=== PATIENT | female | born 1950 | race American Indian/Alaskan Native ===

== ENCOUNTER 2017-07-18 12:25 | Emergency (ER) | payer MEDICARE ==
[2017-07-18 13:25] VITALS: BP 174/89
--- NOTE | 2017-07-18 14:44 | Emergency Department Report ---
ED Abdominal Pain HPI - General Chief Complaint: Tube Replacement Stated Complaint: ABDOMINAL PAIN Time Seen by Provider: 07/18/17 14:34 Source: EMS Mode of arrival: Stretcher Limitations: Altered Mental Status, Physical Limitation - History of Present Illness Initial Comments: Patient is 67 years old female, snf patient with history of stroke bedridden, probable by EMS for evaluation of G-tube placement. Radiology reported that patient does not have G-tube in place. Patient also complaining of lower abdominal pain mainly suprapubic. Patient denied any fever , nausea or vomiting. No chest pain or shortness of breath. MD Complaint: abdominal pain -: Gradual Location: suprapubic Migration to: no migration Severity: moderate Quality: fullness - Related Data Home Medications Medication Instructions Recorded Confirmed Last Taken Escitalopram [Lexapro] 20 mg FEEDTUBE DAILY 05/10/14 01/09/17 Unknown HYDROcodone/APAP 5-325 [Model 1 each FEEDTUBE Q8HR PRN 05/10/14 01/09/17 Unknown 5-325 mg TAB] Levothyroxine [Synthroid] 225 mcg FEEDTUBE QAM 05/10/14 01/09/17 Unknown Metoprolol [Lopressor TAB] 50 mg FEEDTUBE BID 05/10/14 01/09/17 Unknown Pravastatin Sodium [Pravastatin] 40 mg FEEDTUBE QHS 05/10/14 01/09/17 Unknown Warfarin [Coumadin] 5 mg FEEDTUBE QDAY 05/10/14 01/09/17 Unknown LORazepam [Ativan] 1 mg PO Q6H PRN 03/21/15 01/09/17 Unknown Previous Rx's Medication Instructions Recorded Last Taken Type levETIRAcetam [Keppra ORAL LIQ] 500 mg PO BID #1 bottle 03/31/15 Unknown Rx Levothyroxine [Synthroid] 225 mcg FEEDTUBE DAILY@0600 #30 01/10/17 Unknown Rx tablet Lipase/Protease/Amylase [Pancreaze 1 each FEEDTUBE PRN PRN #30 capsule 01/10/[address] 10,500 Unit] Magnesium Hydroxide [Milk of 30 ml PO Q4H PRN #30 oral.liqd 01/10/17 Unknown Rx Magnesia] Simvastatin [Zocor TAB] 20 mg PO QHS tablet 01/10/17 Unknown Rx Sodium Bicarbonate 325 mg FEEDTUBE PRN PRN #30 tablet 01/10/17 Unknown Rx Warfarin [Coumadin] 7.5 mg PO DAILY@1700 #30 tablet 01/10/17 Unknown Rx Docusate Sodium [Colace] 100 mg PO BID PRN #30 capsule 07/18/17 Unknown Rx Lactulose 10 gm PO DAILY PRN #150 ml 07/18/17 Unknown Rx Levofloxacin [Levofloxacin ORAL 500 mg FEEDTUBE DAILY #140 ml 07/18/17 Unknown Rx SOLN] Allergies Allergy/AdvReac Type Severity Reaction Status Date / Time No Known Allergies Allergy Verified 03/31/15 08:09 ED Review of Systems ROS: Stated complaint: ABDOMINAL PAIN Other details as noted in HPI Comment: All other systems reviewed and negative Constitutional: denies: chills, fever Respiratory: denies: cough, orthopnea, shortness of breath Cardiovascular: denies: chest pain, palpitations, dyspnea on exertion, orthopnea Gastrointestinal: abdominal pain. denies: nausea, vomiting, diarrhea, constipation, hematemesis, hematochezia Neurological: denies: headache, weakness, numbness, paresthesias ED Past Medical Hx - Past Medical History Previous Medical History?: Yes Hx Hypertension: Yes Hx CVA: Yes (right sided deficit) Hx Heart Attack/AMI: Yes (2013) Hx Congestive Heart Failure: Yes Hx Diabetes: Yes Hx Renal Disease: Yes Hx HIV: No Additional medical history: g-tube,depression,CAD, hypothyroidism, hyponatremia , high cholesterol, - Surgical History Past Surgical History?: Yes Hx Coronary Stent: Yes Additional Surgical History: cardiac surgery. g tube. - Social History Smoking Status: Unknown if ever smoked Substance Use Type: None - Medications Home Medications: Home Medications Medication Instructions Recorded Confirmed Last Taken Type Escitalopram [Lexapro] 20 mg FEEDTUBE DAILY 05/10/14 01/09/17 Unknown History HYDROcodone/APAP 5-325 [Model 1 each FEEDTUBE Q8HR PRN 05/10/14 01/09/17 Unknown History 5-325 mg TAB] Levothyroxine [Synthroid] 225 mcg FEEDTUBE QAM 05/10/14 01/09/17 Unknown History Metoprolol [Lopressor TAB] 50 mg FEEDTUBE BID 05/10/14 01/09/17 Unknown History Pravastatin Sodium [Pravastatin] 40 mg FEEDTUBE QHS 05/10/14 01/09/17 Unknown History Warfarin [Coumadin] 5 mg FEEDTUBE QDAY 05/10/14 01/09/17 Unknown History LORazepam [Ativan] 1 mg PO Q6H PRN 03/21/15 01/09/17 Unknown History levETIRAcetam [Keppra ORAL LIQ] 500 mg PO BID #1 bottle 03/31/15 01/09/17 Unknown Rx Levothyroxine [Synthroid] 225 mcg FEEDTUBE DAILY@0600 #30 01/10/17 Unknown Rx tablet Lipase/Protease/Amylase [Pancreaze 1 each FEEDTUBE PRN PRN #30 capsule 01/10/17 Unknown Rx 10,500 Unit] Magnesium Hydroxide [Milk of 30 ml PO Q4H PRN #30 oral.liqd 01/10/17 Unknown Rx Magnesia] Simvastatin [Zocor TAB] 20 mg PO QHS tablet 01/10/17 Unknown Rx Sodium Bicarbonate 325 mg FEEDTUBE PRN PRN #30 tablet 01/10/17 Unknown Rx Warfarin [Coumadin] 7.5 mg PO DAILY@1700 #30 tablet 01/10/17 Unknown Rx Docusate Sodium [Colace] 100 mg PO BID PRN #30 capsule 07/18/17 Unknown Rx Lactulose 10 gm PO DAILY PRN #150 ml 07/18/17 Unknown Rx Levofloxacin [Levofloxacin ORAL 500 mg FEEDTUBE DAILY #140 ml 07/18/17 Unknown Rx SOLN] ED Physical Exam - General Limitations: No Limitations, Altered Mental Status, Physical Limitation General appearance: alert, in no apparent distress - Head Head exam: Present: atraumatic, normocephalic - Eye Eye exam: Present: normal appearance, PERRL - ENT ENT exam: Present: normal exam, normal orophraynx, mucous membranes moist - Neck Neck exam: Present: normal inspection, full ROM. Absent: tenderness, meningismus, lymphadenopathy - Respiratory Respiratory exam: Present: normal lung sounds bilaterally. Absent: respiratory distress, wheezes, rales, rhonchi, chest wall tenderness, accessory muscle use, decreased breath sounds, prolonged expiratory - Cardiovascular Cardiovascular Exam: Present: regular rate, normal rhythm, normal heart sounds - GI/Abdominal GI/Abdominal exam: Present: soft, tenderness (suprapubic tenderness), normal bowel sounds, other (G-tube in place). Absent: distended, guarding, rebound, rigid, organomegaly, mass, bruit, pulsatile mass, hernia - Extremities Exam Extremities exam: Present: normal inspection, full ROM, normal capillary refill. Absent: calf tenderness - Back Exam Back exam: Present: normal inspection. Absent: CVA tenderness (R), CVA tenderness (L) - Neurological Exam Neurological exam: Present: alert, oriented X3 - Skin Skin exam: Present: warm, intact, normal color ED Course Vital Signs 07/18/17 07/18/17 13:19 14:10 Temperature 98.8 F Pulse Rate 74 Respiratory 18 Rate Blood Pressure 174/89 O2 Sat by Pulse 94 Oximetry - Reevaluation(s) Reevaluation #1: 07/18/17 17:45 G-tube confirmed with Gastrografin KUB x-ray. Patient received 1 dose of Levaquin here. Patient does not have any nausea vomiting no fever. - Feeding Tube Replacement Reason for Replacement: not functioning/damaged Initial Tube Inserted: greater than 4 weeks Type of Tube: gastrostomy Use of Tube: medications and feeding Insertion Site Prior to Procedure: clean Tube Used for Reinsertion: TIMOTHY Palestinian Tube Size (F): 18 Balloon Size (mls): 10 Verification of Placement: gastrograffin injection Patient Tolerated Procedure: well, no complications ED Medical Decision Making - Lab Data Result diagrams: 07/18/17 14:28 07/18/17 14:28 Critical care attestation.: If time is entered above; I have spent that time in minutes in the direct care of this critically ill patient, excluding procedure time. ED Disposition Clinical Impression: UTI (urinary tract infection), Constipation, Gastrostomy tube obstruction Disposition: DC-01 TO HOME OR SELFCARE Is pt being admited?: No Condition: Stable Instructions: Constipation (ED), Urinary Tract Infection in Women (ED), Tube Feeding (ED) Prescriptions: Docusate Sodium [Colace] 100 mg PO BID PRN #30 capsule PRN Reason: Constipation Lactulose 10 gm PO DAILY PRN #150 ml PRN Reason: Constipation Levofloxacin [Levofloxacin ORAL SOLN] 500 mg FEEDTUBE DAILY #140 ml Referrals: PRIMARY CARE, [Primary Care Provider] - 3-5 Days
[2017-07-18 14:50] LABS: Basophils % (Auto) 0.7 % (0.0-1.8); Eosinophils # (Auto) 0.2 K/mm3 (0.0-0.4); Eosinophils % (Auto) 2.6 % (0.0-4.3); Hematocrit 44.1 % (30.3-42.9); Hemoglobin 13.8 gm/dl (10.1-14.3); Lymphocytes # (Auto) 2.1 K/mm3 (1.2-5.4); Lymphocytes % (Auto) 27.5 % (13.4-35.0); Mean Corpuscular HGB Conc 31 % (30-34); Mean Corpuscular Hemoglobin 27 pg (28-32); Mean Corpuscular Volume 85 fl (79-97); Monocytes # (Auto) 0.5 K/mm3 (0.0-0.8); Monocytes % (Auto) 7.2 % (0.0-7.3); Platelet Count 258 K/mm3 (140-440); Red Blood Count 5.18 M/mm3 (3.65-5.03); Red Cell Distribution Width 13.6 % (13.2-15.2)
[2017-07-18 15:33] LABS: Alanine Aminotransferase 13 units/L (7-56); Albumin 3.1 g/dL (3.9-5); BUN/Creatinine Ratio 38; Blood Urea Nitrogen 15 mg/dL (7-17); Calcium 9.1 mg/dL (8.4-10.2); Hemolysis Index 19; Lipase 40 units/L (13-60)
[2017-07-18 15:36] LABS: Bilirubin,Direct < 0.2 mg/dL (0-0.2)
[2017-07-18 15:45] LABS: Bacteria,Urine 4+ /HPF (Negative); Bilirubin,Urine NEG (Negative); Blood,Urine SM (Negative); Color,Urine Amber (Yellow); Mucus,Urine 1+ /HPF; Nitrite,Urine POS (Negative)
[2017-07-18 15:47] LABS: WBC,Urine > 182.0 /HPF (0.0-6.0)
--- NOTE | 2017-07-18 15:58 | XRay Report ---
FINAL REPORT PROCEDURE: XR ABDOMEN 2V TECHNIQUE: AP views of the abdomen, upright and supine views HISTORY: Abd pain COMPARISON: No prior studies are available for comparison. FINDINGS: An IVC filter is present. No free air is seen beneath the hemidiaphragms. Nonobstructive bowel gas pattern. There is moderate volume of stool in the distal rectum. IMPRESSION: Nonobstructive bowel gas pattern
[2017-07-18] MEDS ORDERED: LEVAQUIN FEEDTUBE ONE (17:09)
--- NOTE | 2017-07-18 18:01 | XRay Report ---
FINAL REPORT PROCEDURE: XR G-TUBE STUDY TECHNIQUE: AP views of the abdomen were performed before and after administration of contrast HISTORY: G-tube assessment COMPARISON: No prior studies are available for comparison. FINDINGS: [employer] image demonstrates nonobstructive bowel gas pattern. A gastrostomy tube overlies the left abdomen. IVC filter is in place. After the administration of contrast material via the gastrostomy tube, contrast is seen within the stomach and proximal small bowel loops. There is also contrast seen in the distal esophagus, suggesting gastroesophageal reflux. No contrast extravasation is seen. IMPRESSION: Gastrostomy tube tip is in the mid stomach. Findings also suggest gastroesophageal reflux.
== END 2017-07-18 22:56 | disposition home or self-care (01) ==
LOC: ED 12:25
DX: K94.23 Gastrostomy malfunction (principal); N39.0 Urinary tract infection, site not specified; K59.00 Constipation, unspecified; I11.0 Hypertensive heart disease with heart failure; I50.9 Heart failure, unspecified; I25.2 Old myocardial infarction; E11.9 Type 2 diabetes mellitus without complications; Z95.1 Presence of aortocoronary bypass graft; Z79.01 Long term (current) use of anticoagulants; Z86.73 Personal history of transient ischemic attack (TIA), and cerebral infarction without residual deficits
CPT/HCPCS: 36415; 74018; 74019; 80048; 80074; 81001; 83690; 83880; 85025; 99285

== ENCOUNTER 2019-06-24 22:32 | Emergency (ER) | payer MEDICARE ==
[2019-06-24] MEDS ORDERED: MORPHINE 4 MG/1 ML INJ IV ONE (23:03)
[2019-06-24] MEDS ORDERED: KETOROLAC 30 MG/1 ML INJ IV ONE (23:03)
[2019-06-24] MEDS ORDERED: FAMOTIDINE 20 MG/2 ML INJ IV ONE (23:03)
[2019-06-24] MEDS ORDERED: ONDANSETRON 4 MG/2 ML INJ IV ONE (23:03)
[2019-06-24 23:32] LABS: Basophils # (Auto) 0.1 K/mm3 (0.0-0.1); Basophils % (Auto) 0.7 % (0.0-1.8); Eosinophils # (Auto) 0.2 K/mm3 (0.0-0.4); Eosinophils % (Auto) 2.3 % (0.0-4.3); Hematocrit 39.9 % (30.3-42.9); Hemoglobin 13.5 gm/dl (10.1-14.3); Lymphocytes # (Auto) 2.1 K/mm3 (1.2-5.4); Lymphocytes % (Auto) 28.3 % (13.4-35.0); Mean Corpuscular HGB Conc 34 % (30-34); Mean Corpuscular Volume 80 fl (79-97); Monocytes # (Auto) 0.6 K/mm3 (0.0-0.8); Monocytes % (Auto) 8.6 % (0.0-7.3); Platelet Count 260 K/mm3 (140-440); Red Blood Count 5.01 M/mm3 (3.65-5.03); Red Cell Distribution Width 16.5 % (13.2-15.2)
[2019-06-24 23:56] LABS: Alanine Aminotransferase 22 units/L (7-56); Albumin 3.7 g/dL (3.9-5); BUN/Creatinine Ratio 28; Blood Urea Nitrogen 14 mg/dL (7-17); Calcium 9.1 mg/dL (8.4-10.2); Hemolysis Index 1
[2019-06-25 00:26] LABS: WBC,Urine < 1.0 /HPF (0.0-6.0)
--- NOTE | 2019-06-25 00:26 | XRay Report ---
ACUTE ABDOMINAL SERIES INDICATION / CLINICAL INFORMATION: Abdominal pain and constipation. COMPARISON: 07/18/2017. FINDINGS: Upright and supine views of the abdomen demonstrate an IVC filter at the L2 level on the right and a gastrostomy tube with the tip overlying the distal stomach. There is a moderate amount stool in the r ight colon and rectum. I see no evidence of bowel obstruction, free air or mass effect. The accompanying chest radiograph reveals a median sternotomy, mild left ventricular hypertrophy and mild aortic tortuosity. The lungs are clear. IMPRESSION: No acute abnormality. Signer Name: Hilton Baumann MD Signed: 06/25/2019 12:21 AM Workstation Name: [id number]
[2019-06-25 00:35] LABS: Bilirubin,Urine NEG (Negative); Blood,Urine MOD (Negative); Color,Urine Straw (Yellow); Mucus,Urine FEW /HPF; Protein,Urine <15 mg/dL mg/dL (Negative); Urobilinogen,Urine < 2.0 mg/dL (<2.0)
--- NOTE | 2019-06-25 00:58 | Emergency Department Report ---
ED Abdominal Pain HPI - General Chief Complaint: Abdominal Pain Stated Complaint: ABDOMINAL PAIN Time Seen by Provider: 06/24/19 22:55 Source: EMS Mode of arrival: Stretcher Limitations: Physical Limitation - History of Present Illness Initial Comments: 69-year-old female with a past medical history of CHF, CVA with right-sided deficit, diabetes, CAD with [place], hypertension, coronary insufficiency, hypothyroidism, G-tube placement, cardiac stent presents to the hospital with complaints of abdominal pain. Patient has difficulty communicating due to pr evious stroke. She points to her mid abdomen as area of pain. intermediate nurse reported the patient has constipation and patient had a bowel movement prior to transport to the hospital. She resides at [facility] PMD Dr. Collado Severity scale (0 -10): 2 - Related Data Home Medications Medication Instructions Recorded Confirmed Last Taken HYDROcodone/APAP 5-325 [[place] 1 each FEEDTUBE Q8HR PRN 05/10/14 02/16/18 Unknown 5-325 mg TAB] Metoprolol [Lopressor TAB] 50 mg FEEDTUBE Q12H 05/10/14 02/16/18 Unknown Acetaminophen [Acetaminophen TAB] 325 mg FEEDTUBE Q6HR PRN 02/16/18 02/16/18 Unknown Apixaban [Eliquis] 5 mg FEEDTUBE BID 02/16/18 02/16/18 Unknown Docusate Sodium [Colace CAP] 100 mg FEEDTUBE Q8H PRN 02/16/18 02/16/18 Unknown Escitalopram Oxalate [Lexapro] 5 mg FEEDTUBE QDAY 02/16/18 02/16/18 Unknown Lactulose [Constulose] 10 gm FEEDTUBE Q24H PRN 02/16/18 02/16/18 Unknown Levothyroxine [Synthroid] 100 mcg FEEDTUBE QAM 02/16/18 02/16/18 Unknown Pravastatin Sodium [Pravachol] 40 mg FEEDTUBE HS 02/16/18 02/16/18 Unknown levETIRAcetam [Keppra ORAL LIQ] 500 mg FEEDTUBE Q12HR 02/16/18 02/16/18 Unknown Previous Rx's Medication Instructions Recorded Last Taken Type Lipase/Protease/Amylase [Pancreaze 1 each FEEDTUBE PRN PRN #30 capsule 01/10/[address] 10,500 Unit] Magnesium Hydroxide [Milk of 30 ml PO Q4H PRN #30 oral.liqd 01/10/17 Unknown Rx Magnesia] Sodium Bicarbonate 325 mg FEEDTUBE PRN PRN #30 tablet 01/10/17 Unknown Rx Escitalopram [Lexapro] 20 mg FEEDTUBE DAILY tablet 02/18/18 Unknown Rx LORazepam [Ativan] 1 mg PO Q6H PRN tablet 02/18/18 Unknown Rx Levothyroxine [Synthroid] 225 mcg FEEDTUBE DAILY@0600 tablet 02/18/18 Unknown Rx Lipase/Protease/Amylase [Pancreaze 1 each FEEDTUBE PRN PRN capsule 02/18/[address] 10,500 Unit] Pantoprazole [Protonix] 40 mg PO BID #60 tablet 02/18/18 Unknown Rx Pravastatin [Pravachol] 40 mg FEEDTUBE QHS tablet 02/18/18 Unknown Rx Simple Syrup 15 ml FEEDTUBE PRN PRN oral.liqd 02/18/18 Unknown Rx Simple Syrup 30 ml FEEDTUBE PRN PRN oral.liqd 02/18/18 Unknown Rx Sodium Bicarbonate 325 mg FEEDTUBE PRN PRN tablet 02/18/18 Unknown Rx levoFLOXacin [Levaquin TAB] 500 mg FEEDTUBE DAILY tablet 02/18/18 Unknown Rx Mineral Oil [Fleet Mineral Oil] 133 ml CO DAILY PRN #7 bottle 06/25/19 Unknown Rx Polyethylene Glycol 3350 [Miralax 17 gm FEEDTUBE QDAY PRN #7 packet 06/25/19 Unknown Rx 3350] Allergies Allergy/AdvReac Type Severity Reaction Status Date / Time No Known Allergies Allergy Verified 03/31/15 08:09 ED Review of Systems ROS: Stated complaint: ABDOMINAL PAIN Other details as noted in HPI Comment: All other systems reviewed and negative ED Past Medical Hx - Past Medical History Previous Medical History?: Yes Hx Hypertension: Yes Hx CVA: Yes (right sided deficit) Hx Heart Attack/AMI: Yes (2013) Hx Congestive Heart Failure: Yes Hx Diabetes: Yes Hx Renal Disease: Yes Hx HIV: No Additional medical history: g-tube,depression,CAD, hypothyroidism, hyponatremia, high cholesterol, - Surgical History Past Surgical History?: Yes Hx Coronary Stent: Yes Additional Surgical History: cardiac surgery. g tube. - Social History Smoking Status: Unknown if ever smoked Substance Use Type: None - Medications Home Medications: Home Medications Medication Instructions Recorded Confirmed Last Taken Type HYDROcodone/APAP 5-325 [[place] 1 each FEEDTUBE Q8HR PRN 05/10/14 02/16/18 Unknown History 5-325 mg TAB] Metoprolol [Lopressor TAB] 50 mg FEEDTUBE Q12H 05/10/14 02/16/18 Unknown History Lipase/Protease/Amylase [Pancreaze 1 each FEEDTUBE PRN PRN #30 capsule 01/10/17 02/16/[address] Real,500 Unit] Magnesium Hydroxide [Milk of 30 ml PO Q4H PRN #30 oral.liqd 01/10/17 02/16/18 Unknown Rx Magnesia] Sodium Bicarbonate 325 mg FEEDTUBE PRN PRN #30 tablet 01/10/17 02/16/18 Unknown Rx Acetaminophen [Acetaminophen TAB] 325 mg FEEDTUBE Q6HR PRN 02/16/18 02/16/18 Unknown History Apixaban [Eliquis] 5 mg FEEDTUBE BID 02/16/18 02/16/18 Unknown History Docusate Sodium [Colace CAP] 100 mg FEEDTUBE Q8H PRN 02/16/18 02/16/18 Unknown History Escitalopram Oxalate [Lexapro] 5 mg FEEDTUBE QDAY 02/16/18 02/16/18 Unknown History Lactulose [Constulose] 10 gm FEEDTUBE Q24H PRN 02/16/18 02/16/18 Unknown History Levothyroxine [Synthroid] 100 mcg FEEDTUBE QAM 02/16/18 02/16/18 Unknown History Pravastatin Sodium [Pravachol] 40 mg FEEDTUBE HS 02/16/18 02/16/18 Unknown History levETIRAcetam [Keppra ORAL LIQ] 500 mg FEEDTUBE Q12HR 02/16/18 02/16/18 Unknown History Escitalopram [Lexapro] 20 mg FEEDTUBE DAILY tablet 02/18/18 Unknown Rx LORazepam [Ativan] 1 mg PO Q6H PRN tablet 02/18/18 Unknown Rx Levothyroxine [Synthroid] 225 mcg FEEDTUBE DAILY@0600 tablet 02/18/18 Unknown Rx Lipase/Protease/Amylase [Pancreaze 1 each FEEDTUBE PRN PRN capsule 02/18/[address] 10,500 Unit] Pantoprazole [Protonix] 40 mg PO BID #60 tablet 02/18/18 Unknown Rx Pravastatin [Pravachol] 40 mg FEEDTUBE QHS tablet 02/18/18 Unknown Rx Simple Syrup 15 ml FEEDTUBE PRN PRN oral.liqd 02/18/18 Unknown Rx Simple Syrup 30 ml FEEDTUBE PRN PRN oral.liqd 02/18/18 Unknown Rx Sodium Bicarbonate 325 mg FEEDTUBE PRN PRN tablet 02/18/18 Unknown Rx levoFLOXacin [Levaquin TAB] 500 mg FEEDTUBE DAILY tablet 02/18/18 Unknown Rx Mineral Oil [Fleet Mineral Oil] 133 ml CO DAILY PRN #7 bottle 06/25/19 Unknown Rx Polyethylene Glycol 3350 [Miralax 17 gm FEEDTUBE QDAY PRN #7 packet 06/25/19 Unknown Rx 3350] ED Physical Exam - General Limitations: Physical Limitation - Other Other exam information: General: No limitations, patient is alert in no acute distress Head exam: Atraumatic, normocephalic Eyes exam: Normal appearance, pupils equal reactive to light, extraocular movements intact ENT: Moist mucous membrane, normal oropharynx Neck exam: Normal inspection, full range of motion, no meningismus nontender Respiratory exam: Clear to auscultation bilateral, no wheezes, rales, crackles Cardiovascular: Normal rate and rhythm, normal heart sounds Abdomen: Soft, nondistended, PEG tube. Generalized abdominal tenderness. Diminished bowel sounds Extremity: Full range of motion normal inspection no deformity Back: Normal Inspection, full range of motion, no tenderness Neurologic: Alert, significant dysarthria, right sided weakness/paralysis chronic Psychiatric: normal affect, normal mood Skin: Warm, dry, intact ED Course Vital Signs 06/24/19 06/24/19 06/24/19 22:42 23:15 23:16 Temperature 98.2 F Pulse Rate 85 Respiratory 15 15 16 Rate Blood Pressure 197/113 Blood Pressure 197/113 [Left] O2 Sat by Pulse 99 Oximetry 06/24/19 06/24/19 06/24/19 23:45 23:46 23:58 Temperature Pulse Rate 76 Respiratory 16 16 16 Rate Blood Pressure Blood Pressure 166/87 [Left] O2 Sat by Pulse 100 Oximetry 06/25/19 02:22 Temperature 98.6 F Pulse Rate 72 Respiratory 16 Rate Blood Pressure Blood Pressure 159/82 [Left] O2 Sat by Pulse 94 Oximetry - Reevaluation(s) Reevaluation #1: 06/25/19 05:19 pt received a second soap suds enema, then pt had rectal pain and pressure. manual disimipaction performed and stool that was reachable via finger was removed from vault. - Consultations Consultation #1: 06/25/19 04:29 Dr collado informed ( as per [facility] RN request). INformed of diagnosis of constipation/fecal impaction and patient will be discharged back to the alf. ED Medical Decision Making - Lab Data Result diagrams: 06/24/19 23:24 06/24/19 23:24 Lab Results 06/24/19 06/24/19 06/24/19 Range/Units 23:24 23:24 23:56 WBC 7.3 (4.5-11.0) K/mm3 RBC 5.01 (3.65-5.03) M/mm3 Hgb 13.5 (10.1-14.3) gm/dl Hct 39.9 (30.3-42.9) % MCV 80 (79-97) fl MCH 27 L (28-32) pg MCHC 34 (30-34) % RDW 16.5 H (13.2-15.2) % Plt Count 260 (140-440) K/mm3 Lymph % (Auto) 28.3 (13.4-35.0) % Dunn % (Auto) 8.6 H (0.0-7.3) % Eos % (Auto) 2.3 (0.0-4.3) % Baso % (Auto) 0.7 (0.0-1.8) % Lymph # 2.1 (1.2-5.4) K/mm3 Dunn # 0.6 (0.0-0.8) K/mm3 Eos # 0.2 (0.0-0.4) K/mm3 Baso # 0.1 (0.0-0.1) K/mm3 Seg Neutrophils % 60.1 (40.0-70.0) % Seg Neutrophils # 4.4 (1.8-7.7) K/mm3 Sodium 140 (137-145) mmol/L Potassium 4.3 (3.6-5.0) mmol/L Chloride 102.9 (98-107) mmol/L Carbon Dioxide 24 (22-30) mmol/L Anion Gap 17 mmol/L BUN 14 (7-17) mg/dL Creatinine 0.5 L (0.7-1.2) mg/dL Estimated GFR > 60 ml/min BUN/Creatinine Ratio 28 % Glucose 123 H (65-100) mg/dL Calcium 9.1 (8.4-10.2) mg/dL Total Bilirubin 0.30 (0.1-1.2) mg/dL AST 28 (5-40) units/L ALT 22 (7-56) units/L Alkaline Phosphatase 123 (35-129) units/L Total Protein 8.5 H (6.3-8.2) g/dL Albumin 3.7 L (3.9-5) g/dL Albumin/Globulin Ratio 0.8 % Lipase 31 (13-60) units/L Urine Color Straw (Yellow) Urine Turbidity Clear (Clear) Urine pH 8.0 H (5.0-7.0) Ur Specific [place] 1.006 (1.003-1.030) Urine Protein <15 mg/dl (Negative) mg/dL Urine Glucose (UA) Neg (Negative) mg/dL Urine Ketones Neg (Negative) mg/dL Urine Blood Mod (Negative) Urine Nitrite Neg (Negative) Ur Reducing Substances Not Reportable Urine Bilirubin Neg (Negative) Urine Ictotest Not Reportable Urine Urobilinogen < 2.0 (<2.0) mg/dL Ur Leukocyte Esterase Neg (Negative) Urine WBC (Auto) < 1.0 (0.0-6.0) /HPF Urine RBC (Auto) 8.0 (0.0-6.0) /HPF U Epithel Cells (Auto) < 1.0 (0-13.0) /HPF Urine Mucus Few /HPF - Radiology Data Radiology results: report reviewed CT OF THE ABDOMEN AND PELVIS WITH INTRAVENOUS CONTRAST INDICATION / CLINICAL INFORMATION: Generalized abdominal pain. TECHNIQUE: The patient received 100 cc Omnipaque [address] scans at this location are performed using CT dose reduction for ALARA by means of automated exposure control. COMPARISON: 02/16/2018. FINDINGS: ABDOMEN: There is a PEG tube in good position in the gastric antrum. There is an IVC filter in the infrarenal IVC without acute complication. The liver, spleen, gallbladder, bile ducts, pancreas, adrenal gla nds and bowel demonstrate no acute abnormality. There is a 7 mm nonobstructive calculus in the lower pole of the right kidney. There is mild renal cortical scarring bilaterally. Mild right basilar subsegmental atelectasis is noted. PELVIS: The distal ureters and urinary bladder are normal. There is a moderate amount of stool in a distended rectum. No bowel wall thickening is seen. The uterus and ovaries are not identified. There is no evidence of appendicitis or diverticulitis. I do not identify a hernia. There is mild spondylosis. Multiple mild compression fractures in the spine are old. IMPRESSION: 1. Possible mild fecal impaction in the rectum without evidence of associated stercoral colitis. 2. Nonobstructive right nephrolithiasis. 3. PEG tube in good position without complication. ACUTE ABDOMINAL SERIES INDICATION / CLINICAL INFORMATION: Abdominal pain and constipation. COMPARISON: 07/18/2017. FINDINGS: Upright and supine views of the abdomen demonstrate an IVC filter at the L2 level on the right and a gastrostomy tube with the tip overlying the distal stomach. There is a moderate amount stool in the right colon and rectum. I see no evidence of bowel obstruction, free air or mass effect. The accompanying chest radiograph reveals a median ster notomy, mild left ventricular hypertrophy and mild aortic tortuosity. The lungs are clear. IMPRESSION: No acute abnormality. - Medical Decision Making pt with fecal impaction received enema with additional output addition meds will be prescribed for [facility] Dr collado informed - Differential Diagnosis fecal impaction, obstruction, constipatoin, infection Critical Care Time: No Critical care attestation.: If time is entered above; I have spent that time in minutes in the direct care of this critically ill patient, excluding procedure time. ED Disposition Clinical Impression: Fecal impaction, Constipation Disposition: DC-01 TO HOME OR SELFCARE Is pt being admited?: No Does the pt Need Aspirin: No Condition: Stable Instructions: Fecal Impaction (ED) Additional Instructions: Take the medication as prescribed. Follow-up with your doctor or with the doctor provided. Return is symptoms worsen as indicated by your discharge instructions. Prescriptions: Mineral Oil [Fleet Mineral Oil] 133 ml CO DAILY PRN #7 bottle PRN Reason: Constipation Polyethylene Glycol 3350 [Miralax 3350] 17 gm FEEDTUBE QDAY PRN #7 packet PRN Reason: Constipation Referrals: PRIMARY CAREMD [Primary Care Provider] - 3-5 Days [facility] [Provider Group] - 3-5 Days EVANGELINA COLLADO MD [Staff Physician] - 3-5 Days
--- NOTE | 2019-06-25 01:00 | Cat Scan Report ---
CT OF THE ABDOMEN AND PELVIS WITH INTRAVENOUS CONTRAST INDICATION / CLINICAL INFORMATION: Generalized abdominal pain. TECHNIQUE: The patient received 100 cc Omnipaque [address] scans at this location are performed using CT dose reduction for ALARA by means of automated exposure control. COMPARISON: 02/16/2018. FINDINGS: ABDOMEN: There is a PEG tube in good position in the gastric antrum. There is an IVC filter in the in frarenal IVC without acute complication. The liver, spleen, gallbladder, bile ducts, pancreas, adrena l glands and bowel demonstrate no acute abnormality. There is a 7 mm nonobstructive calculus in the l ower pole of the right kidney. There is mild renal cortical scarring bilaterally. Mild right basilar subsegmental atelectasis is noted. PELVIS: The distal ureters and urinary bladder are normal. There is a moderate amount of stool in a d istended rectum. No bowel wall thickening is seen. The uterus and ovaries are not identified. There i s no evidence of appendicitis or diverticulitis. I do not identify a hernia. There is mild spondylosi s. Multiple mild compression fractures in the spine are old. IMPRESSION: 1. Possible mild fecal impaction in the rectum without evidence of associated stercoral colitis. 2. Nonobstructive right nephrolithiasis. 3. PEG tube in good position without complication. Signer Name: Hilton Baumann MD Signed: 06/25/2019 12:56 AM Workstation Name: [id number]
[2019-06-25] MEDS ORDERED: LIDOCAINE VISCOUS 2% 15 ML ORAL LIQD TP ONE (05:00)
[2019-06-25] MEDS ORDERED: LIDOCAINE VISCOUS 2% 15 ML ORAL LIQD ONE (05:07)
[2019-06-25 06:38] VITALS: BP 134/86
== END 2019-06-25 07:05 | disposition home or self-care (01) ==
LOC: ED 22:32
DX: K56.41 Fecal impaction (principal); I10 Essential (primary) hypertension; I21.9 Acute myocardial infarction, unspecified; E11.9 Type 2 diabetes mellitus without complications; E03.9 Hypothyroidism, unspecified; Z86.73 Personal history of transient ischemic attack (TIA), and cerebral infarction without residual deficits; Z98.890 Other specified postprocedural states; Z79.899 Other long term (current) drug therapy
CPT/HCPCS: 36415; 74022; 74177; 80053; 81001; 83690; 85025; 96374; 96375; 99285; J1885; J2270; J2405; Q9967

== ENCOUNTER 2020-08-26 10:45 | Emergency (ER) | payer MEDICARE ==
[2020-08-26] MEDS ORDERED: ONDANSETRON 4 MG/2 ML INJ IV ONE (11:30)
[2020-08-26] MEDS ORDERED: fentaNYL 100 MCG/2 ML INJ IV ONE (11:30)
--- NOTE | 2020-08-26 11:39 | Emergency Department Report ---
HPI - General Chief Complaint: Abdominal Pain Time Seen by Provider: 08/26/20 11:21 - HPI HPI: Room 18 The patient is a 70-year-old female present with a chief complaint of abdominal pain. Patient states she has had intermittent diffuse abdominal pain for the past 3 to 4 days associated with nausea vomiting once. The patient is a resident at [facility] and had a 1 view abdominal x-ray performed 08/25/2020 which was read as "mild colonic ileus." The patient was subsequently sent to the ED for further evaluation. The patient has a history of a previous CVA with aphasia so obtaining a history is difficult but the patient acknowledges her last bowel movement occurred yesterday. ED Past Medical Hx - Past Medical History Previous Medical History?: Yes Hx Hypertension: Yes Hx CVA: Yes (right sided deficit) Hx Heart Attack/AMI: Yes (2013) Hx Congestive Heart Failure: Yes Hx Diabetes: Yes Hx Deep Vein Thrombosis: Yes Hx Renal Disease: Yes Additional medical history: g-tube,depression,CAD, hypoparathyroidism, hyponatremia, high cholesterol, aphasia, MDD, AFib - Surgical History Past Surgical History?: Yes Hx Coronary Stent: Yes Additional Surgical History: cardiac surgery. g tube. - Family History Family history: no significant - Social History Smoking Status: Never Smoker Substance Use Type: None - Medications Home Medications: Home Medications Medication Instructions Recorded Confirmed Last Taken Type HYDROcodone/APAP 5-325 [[place] 1 each FEEDTUBE Q8HR PRN 05/10/14 02/16/18 Unknown History 5-325 mg TAB] Metoprolol [Lopressor TAB] 50 mg FEEDTUBE Q12H 05/10/14 02/16/18 Unknown History Lipase/Protease/Amylase [Pancreaze 1 each FEEDTUBE PRN PRN #30 capsule 01/10/17 02/16/18 Unknown Rx 10,500 Unit] Magnesium Hydroxide [Milk of 30 ml PO Q4H PRN #30 oral.liqd 01/10/17 02/16/18 Unknown Rx Magnesia] Sodium Bicarbonate 325 mg FEEDTUBE PRN PRN #30 tablet 01/10/17 02/16/18 Unknown Rx Acetaminophen [Acetaminophen TAB] 325 mg FEEDTUBE Q6HR PRN 02/16/18 02/16/18 Unknown History Apixaban [Eliquis] 5 mg FEEDTUBE BID 02/16/18 02/16/18 Unknown History Docusate Sodium [Colace CAP] 100 mg FEEDTUBE Q8H PRN 02/16/18 02/16/18 Unknown History Escitalopram Oxalate [Lexapro] 5 mg FEEDTUBE QDAY 02/16/18 02/16/18 Unknown History Lactulose [Constulose] 10 gm FEEDTUBE Q24H PRN 02/16/18 02/16/18 Unknown History Levothyroxine [Synthroid] 100 mcg FEEDTUBE QAM 02/16/18 02/16/18 Unknown History Pravastatin Sodium [Pravachol] 40 mg FEEDTUBE HS 02/16/18 02/16/18 Unknown History levETIRAcetam [Keppra ORAL LIQ] 500 mg FEEDTUBE Q12HR 02/16/18 02/16/18 Unknown History Escitalopram [Lexapro] 20 mg FEEDTUBE DAILY tablet 02/18/18 Unknown Rx LORazepam [Ativan] 1 mg PO Q6H PRN tablet 02/18/18 Unknown Rx Levothyroxine [Synthroid] 225 mcg FEEDTUBE DAILY@0600 tablet 02/18/18 Unknown Rx Lipase/Protease/Amylase [Pancreaze 1 each FEEDTUBE PRN PRN capsule 02/18/[address] 10,500 Unit] Pantoprazole [Protonix] 40 mg PO BID #60 tablet 02/18/18 Unknown Rx Pravastatin [Pravachol] 40 mg FEEDTUBE QHS tablet 02/18/18 Unknown Rx Simple Syrup 15 ml FEEDTUBE PRN PRN oral.liqd 02/18/18 Unknown Rx Simple Syrup 30 ml FEEDTUBE PRN PRN oral.liqd 02/18/18 Unknown Rx Sodium Bicarbonate 325 mg FEEDTUBE PRN PRN tablet 02/18/18 Unknown Rx levoFLOXacin [Levaquin TAB] 500 mg FEEDTUBE DAILY tablet 02/18/18 Unknown Rx Mineral Oil [Fleet Mineral Oil] 133 ml [place] DAILY PRN #7 bottle 06/25/19 Unknown Rx polyethylene glycoL 3350 [Miralax 17 gm FEEDTUBE QDAY PRN #7 packet 06/25/19 Unknown Rx 3350] Ciprofloxacin HCl 500 mg PO BID #14 tablet 08/26/20 Unknown Rx HYDROcodone/APAP 5-325 [[place] 1 - 2 each PO Q6HR PRN #10 tablet 08/26/20 Unknown Rx 5/325] metroNIDAZOLE [Flagyl] 500 mg PO Q8H #21 tab 08/26/20 Unknown Rx ED Review of Systems ROS: Stated complaint: COLONIC ILEUS Other details as noted in HPI Constitutional: no symptoms reported Respiratory: no symptoms reported Endocrine: no symptoms reported Gastrointestinal: abdominal pain, nausea, vomiting Physical Exam - Physical Exam Vital Signs: Vital Signs 08/26/20 08/26/20 11:23 11:25 Temperature 98.3 F Pulse Rate 76 Respiratory 18 18 Rate Blood Pressure 135/71 [Left] O2 Sat by Pulse 98 Oximetry Physical Exam: GENERAL: The patient is well-developed well-nourished female lying on stretcher not appearing to be in acute distress. [] HEENT: Normocephalic. Atraumatic. Extraocular motions are intact. Patient has moist mucous membranes. NECK: Supple. Trachea midline CHEST/LUNGS: Clear to auscultation. There is no respiratory distress noted. HEART/CARDIOVASCULAR: Regular. There is no tachycardia. There is no gallop rub or murmur. ABDOMEN: Abdomen is soft, with diffuse tenderness to palpation. There is no rebound or guarding. Patient has normal bowel sounds. There is no abdominal distention. SKIN: There is no rash. There is no edema. There is no diaphoresis. NEURO: The patient is awake and alert but aphasic from previous CVA. The patient is cooperative. The patient has a dense right hemiparesis. MUSCULOSKELETAL:There is no evidence of acute injury. RECTAL: No stool in the vault. Evidence of perez-colored diarrhea present ED Course Vital Signs 08/26/20 08/26/20 11:23 11:25 Temperature 98.3 F Pulse Rate 76 Respiratory 18 18 Rate Blood Pressure 135/71 [Left] O2 Sat by Pulse 98 Oximetry - Consultations Consultation #1: 08/26/20 15:04 GI paged 08/26/20 15:[address] Wood-states if there is very large stool burden on rectal exam CT findings may be secondary to stercocolitis. If history of diarrhea and concern for infectious etiology with empty vault consider ciprofloxacin and Flagyl Consultation #2: 08/26/20 15:30 Dr. Jossue Camara paged 08/26/20 15:55 Dr. Camara notified of discharge ED Medical Decision Making - Lab Data Result diagrams: 08/26/20 12:03 08/26/20 12:03 - Radiology Data Radiology results: report reviewed (CT abdomen pelvis), image reviewed (CT abdomen pelvis) CT ABDOMEN AND PELVIS WITH CONTRAST INDICATION / CLINICAL INFORMATION: Pain TECHNIQUE: Axial CT images were obtained through the abdomen and pelvis after IV contrast. All CT scans at this location are performed using CT dose reduction for ALARA by means of automated exposure control. COMPARISON: CT from 06/25/2019. FINDINGS: LOWER CHEST: Mild cardiac enlargement without pericardial effusion. There is bibasilar volume loss. LIVER: No significant abnormality GALLBLADDER/BILIARY TREE: No significant abnormality PANCREAS: No significant abnormality SPLEEN: No significant abnormality ADRENALS: No significant abnorma lity KIDNEYS / URETER: Bilateral renal cortical scarring with 5 mm nonobstructive stone in the right lower infundibulum. Kidneys enhance symmetrically. No hydronephrosis. URINARY BLADDER: No significant abnormality REPRODUCTIVE ORGANS: Uterus is absent. No significant adnexal abnormality. STOMACH / SMALL BOWEL: Gastrostomy tube balloon is positioned within the stomach. No acute findings of the small bowel or stomach. COLON: There is mural thickening and surrounding inflammatory stranding of the rectum . Appendix is not seen. LYMPH NODES: No significant adenopathy. VASCULATURE: Mild atheroscler otic calcification without acute abnormality. IVC filter is present within the infrarenal IVC. OTHER: No free air, free fluid, or focal fluid collection is identified. SKELETAL SYSTEM: No acute osseous findings. Median sternotomy changes are partially imaged. Mild multilevel compression deformities are unchanged. IMPRESSION: 1. Mural thickening and inflammatory stranding of the rectum, concerning for infectious or inflammatory proctitis. 2. Other stable chronic, incidental findings as above. 3. IVC Filter Recommendation: IVC filters should be removed if possible when they are no longer clinically necessary. (1) Refer to the established IVC filter management plan; (2) If there is no establi shed plan for the patient's IVC filter, consider referral to interventional/vascular clinician on a nonemergent basis for evaluation. Signer Name: Abhi Ayala MD Signed: 08/26/2020 1:41 PM Workstation Name: [id number] - Differential Diagnosis Ileus, bowel obstruction, pancreatitis, gastritis, GERD Critical care attestation.: If time is entered above; I have spent that time in minutes in the direct care of this critically ill patient, excluding procedure time. ED Disposition Clinical Impression: Acute abdominal pain, Proctitis Disposition: TO HOME OR SELFCARE Is pt being admited?: No Does the pt Need Aspirin: No Condition: Stable Instructions: Abdominal Pain (ED) Additional Instructions: Return to the emergency department should you develop worsening symptoms, inability to tolerate food or liquids, high fever or any other concerns Prescriptions: Ciprofloxacin HCl 500 mg PO BID #14 tablet metroNIDAZOLE [Flagyl] 500 mg PO Q8H #21 tab HYDROcodone/APAP 5-325 [[place] 5/325] 1 - 2 each PO Q6HR PRN #10 tablet PRN Reason: Pain Referrals: JOSSUE CAMARA MD [Primary Care Provider] - 3-5 Days Time of Disposition: 15:57
[2020-08-26 12:32] LABS: Basophils % (Auto) 0.6 % (0.0-1.8); Eosinophils # (Auto) 0.2 K/mm3 (0.0-0.4); Eosinophils % (Auto) 2.6 % (0.0-4.3); Hematocrit 43.1 % (30.3-42.9); Hemoglobin 14.1 gm/dl (10.1-14.3); Lymphocytes # (Auto) 2.4 K/mm3 (1.2-5.4); Mean Corpuscular HGB Conc 33 % (30-34); Mean Corpuscular Volume 86 fl (79-97); Monocytes # (Auto) 0.7 K/mm3 (0.0-0.8); Monocytes % (Auto) 9.8 % (0.0-7.3); Red Blood Count 4.99 M/mm3 (3.65-5.03); Red Cell Distribution Width 13.9 % (13.2-15.2)
[2020-08-26 12:33] LABS: Platelet Count 177 K/mm3 (140-440)
[2020-08-26 13:11] LABS: Alanine Aminotransferase 20 units/L (7-56); Albumin 3.7 g/dL (3.9-5); Blood Urea Nitrogen 17 mg/dL (7-17); Calcium 8.9 mg/dL (8.4-10.2); Hemolysis Index 183
[2020-08-26 13:18] LABS: BUN/Creatinine Ratio 43
--- NOTE | 2020-08-26 14:45 | Cat Scan Report ---
CT ABDOMEN AND PELVIS WITH CONTRAST INDICATION / CLINICAL INFORMATION: Pain TECHNIQUE: Axial CT images were obtained through the abdomen and pelvis after IV contrast. All CT sc ans at this location are performed using CT dose reduction for ALARA by means of automated exposure c ontrol. COMPARISON: CT from 06/25/2019. FINDINGS: LOWER CHEST: Mild cardiac enlargement without pericardial effusion. There is bibasilar volume loss. LIVER: No significant abnormality GALLBLADDER/BILIARY TREE: No significant abnormality PANCREAS: No significant abnormality SPLEEN: No significant abnormality ADRENALS: No significant abnormality KIDNEYS / URETER: Bilateral renal cortical scarring with 5 mm nonobstructive stone in the right lower infundibulum. Kidneys enhance symmetrically. No hydronephrosis. URINARY BLADDER: No significant abnormality REPRODUCTIVE ORGANS: Uterus is absent. No significant adnexal abnormality. STOMACH / SMALL BOWEL: Gastrostomy tube balloon is positioned within the stomach. No acute findings o f the small bowel or stomach. COLON: There is mural thickening and surrounding inflammatory stranding of the rectum . Appendix is n ot seen. LYMPH NODES: No significant adenopathy. VASCULATURE: Mild atherosclerotic calcification without acute abnormality. IVC filter is present with in the infrarenal IVC. OTHER: No free air, free fluid, or focal fluid collection is identified. SKELETAL SYSTEM: No acute osseous findings. Median sternotomy changes are partially imaged. Mild mult ilevel compression deformities are unchanged. IMPRESSION: 1. Mural thickening and inflammatory stranding of the rectum, concerning for infectious or inflammato ry proctitis. 2. Other stable chronic, incidental findings as above. 3. IVC Filter Recommendation: IVC filters should be removed if possible when they are no longer clini nayana necessary. (1) Refer to the established IVC filter management plan; (2) If there is no establis hed plan for the patient's IVC filter, consider referral to interventional/vascular clinician on a no nemergent basis for evaluation. Signer Name: Abhi Ayala MD Signed: 08/26/2020 2:41 PM Workstation Name: [id number]
[2020-08-26 14:50] LABS: Bilirubin,Urine NEG (Negative); Blood,Urine MOD (Negative); Color,Urine Yellow (Yellow); Protein,Urine <15 mg/dL mg/dL (Negative); Urobilinogen,Urine < 2.0 mg/dL (<2.0)
[2020-08-26 17:50] VITALS: BP 125/49
== END 2020-08-26 17:51 | disposition home or self-care (01) ==
LOC: ED 10:45
DX: K62.89 Other specified diseases of anus and rectum (principal); R10.84 Generalized abdominal pain; I11.0 Hypertensive heart disease with heart failure; I50.9 Heart failure, unspecified; I25.2 Old myocardial infarction; E11.9 Type 2 diabetes mellitus without complications; Z86.73 Personal history of transient ischemic attack (TIA), and cerebral infarction without residual deficits; Z86.718 Personal history of other venous thrombosis and embolism; Z98.890 Other specified postprocedural states; Z79.899 Other long term (current) drug therapy
CPT/HCPCS: 36415; 74177; 80053; 81001; 83690; 85025; 96374; 96375; 99284; J2405; J3010; Q9967

== ENCOUNTER 2021-02-11 08:07 | Emergency (ER) | payer MEDICARE ==
--- NOTE | 2021-02-11 08:53 | Emergency Department Report ---
HPI - General Time Seen by Provider: 02/11/21 08:49 - HPI HPI: Room 5 The patient is a 69-year-old female present with chief complaint of cardiac arrest. Per EMS the patient was brought in from detention with unknown last known well time. EMS arrived on scene at 07:31 to find the patient in asystole. ACLS protocols were initiated and the patient was intubated using a Combitube and chest compressions were administered. Patient was administered epinephrine prior to arrival. Upon arrival to the ED the Combitube was removed the patient was intubated using glide scope and a 7.0 ET tube by myself. ACLS protocols were continued but there was no return of spontaneous circulation. ED Past Medical Hx - Past Medical History Hx Hypertension: Yes Hx CVA: Yes (right sided deficit) Hx Heart Attack/AMI: Yes (2013) Hx Congestive Heart Failure: Yes Hx Diabetes: Yes Hx Deep Vein Thrombosis: Yes Hx Renal Disease: Yes Additional medical history: g-tube,depression,CAD, hypoparathyroidism, hyponatremia, high cholesterol, aphasia, MDD, AFib - Surgical History Hx Coronary Stent: Yes Additional Surgical History: cardiac surgery. g tube. - Family History Family history: no significant - Social History Smoking Status: Unknown if ever smoked Substance Use Type: None - Medications Home Medications: Home Medications Medication Instructions Recorded Confirmed Last Taken Type HYDROcodone/APAP 5-325 [[place] 1 each FEEDTUBE Q8HR PRN 05/10/14 02/16/18 Unknown History 5-325 mg TAB] Metoprolol [Lopressor TAB] 50 mg FEEDTUBE Q12H 05/10/14 02/16/18 Unknown History Lipase/Protease/Amylase [Pancreaze 1 each FEEDTUBE PRN PRN #30 capsule 01/10/17 02/16/18 Unknown Rx 10,500 Unit] Magnesium Hydroxide [Milk of 30 ml PO Q4H PRN #30 oral.liqd 01/10/17 02/16/18 Unknown Rx Magnesia] Sodium Bicarbonate 325 mg FEEDTUBE PRN PRN #30 tablet 01/10/17 02/16/18 Unknown Rx Acetaminophen [Acetaminophen TAB] 325 mg FEEDTUBE Q6HR PRN 02/16/18 02/16/18 Unknown History Apixaban [Eliquis] 5 mg FEEDTUBE BID 02/16/18 02/16/18 Unknown History Docusate Sodium [Colace CAP] 100 mg FEEDTUBE Q8H PRN 02/16/18 02/16/18 Unknown History Escitalopram Oxalate [Lexapro] 5 mg FEEDTUBE QDAY 02/16/18 02/16/18 Unknown History Lactulose [Constulose] 10 gm FEEDTUBE Q24H PRN 02/16/18 02/16/18 Unknown History Levothyroxine [Synthroid] 100 mcg FEEDTUBE QAM 02/16/18 02/16/18 Unknown History Pravastatin Sodium [Pravachol] 40 mg FEEDTUBE HS 02/16/18 02/16/18 Unknown History levETIRAcetam [Keppra ORAL LIQ] 500 mg FEEDTUBE Q12HR 02/16/18 02/16/18 Unknown History Escitalopram [Lexapro] 20 mg FEEDTUBE DAILY tablet 02/18/18 Unknown Rx LORazepam [Ativan] 1 mg PO Q6H PRN tablet 02/18/18 Unknown Rx Levothyroxine [Synthroid] 225 mcg FEEDTUBE DAILY@0600 tablet 02/18/18 Unknown Rx Lipase/Protease/Amylase [Pancreaze 1 each FEEDTUBE PRN PRN capsule 02/18/[address] 10,500 Unit] Pantoprazole [Protonix] 40 mg PO BID #60 tablet 02/18/18 Unknown Rx Pravastatin [Pravachol] 40 mg FEEDTUBE QHS tablet 02/18/18 Unknown Rx Simple Syrup 15 ml FEEDTUBE PRN PRN oral.liqd 02/18/18 Unknown Rx Simple Syrup 30 ml FEEDTUBE PRN PRN oral.liqd 02/18/18 Unknown Rx Sodium Bicarbonate 325 mg FEEDTUBE PRN PRN tablet 02/18/18 Unknown Rx levoFLOXacin [Levaquin TAB] 500 mg FEEDTUBE DAILY tablet 02/18/18 Unknown Rx Mineral Oil [Fleet Mineral Oil] 133 ml [place] DAILY PRN #7 bottle 06/25/19 Unknown Rx polyethylene glycoL 3350 [Miralax 17 gm FEEDTUBE QDAY PRN #7 packet 06/25/19 Unknown Rx 3350] Ciprofloxacin HCl 500 mg PO BID #14 tablet 08/26/20 Unknown Rx HYDROcodone/APAP 5-325 [[place] 1 - 2 each PO Q6HR PRN #10 tablet 08/26/20 Unknown Rx 5/325] metroNIDAZOLE [Flagyl] 500 mg PO Q8H #21 tab 08/26/20 Unknown Rx ED Review of Systems ROS: Stated complaint: CARDIAC ARREST Other details as noted in HPI Comment: Unobtainable due to pts medical conditions Physical Exam - Physical Exam Physical Exam: GENERAL: The patient is well-developed well-nourished female lying on stretcher receiving chest compressions from EMS and being bagged via Combitube. [] HEENT: Normocephalic. Atraumatic. NECK: Trachea midline CHEST/LUNGS: No spontaneous respirations. Breath sounds equal bilaterally with bagging after intubation by myself HEART/CARDIOVASCULAR: No heart sounds. Asystole on the monitor ABDOMEN: Abdomen is soft, nontender. Patient has normal bowel sounds. There is no abdominal distention. SKIN: There is no rash. There is no edema. There is no diaphoresis. NEURO: GCS 3 T MUSCULOSKELETAL: There is no evidence of acute injury. - Intubation Time Out Performed: No Laryngoscope: fiberoptic video scope Size: 3 Assist Device Used: fiberoptic device ET Tube Size: 7 Tube Secured Depth (cm): 21 Tube Secured Location: lips Tube Placement Confirmation: visualized tube passing t, equal breath sounds bilat, confirmation by capnometr Patient Tolerated Procedure: no complications Intubation Complications: none ED Medical Decision Making - Differential Diagnosis Cardiac arrest Critical care attestation.: If time is entered above; I have spent that time in minutes in the direct care of this critically ill patient, excluding procedure time. ED Disposition Clinical Impression: Cardiac arrest Disposition: 20 Is pt being admited?: No Does the pt Need Aspirin: No Condition: Poor Time of Disposition: 08:49 (Patient )
== END 2021-02-11 19:05 ==
LOC: ED 08:07
DX: I46.9 Cardiac arrest, cause unspecified (principal); I13.0 Hypertensive heart and chronic kidney disease with heart failure and stage 1 through stage 4 chronic kidney disease, or unspecified chronic kidney disease; E11.22 Type 2 diabetes mellitus with diabetic chronic kidney disease; N18.9 Chronic kidney disease, unspecified; I63.9 Cerebral infarction, unspecified; F32.9 Major depressive disorder, single episode, unspecified; E20.9 Hypoparathyroidism, unspecified; E87.1 Hypo-osmolality and hyponatremia; E78.00 Pure hypercholesterolemia, unspecified; R47.01 Aphasia; I48.91 Unspecified atrial fibrillation; Z98.890 Other specified postprocedural states
CPT/HCPCS: 31500; 92950; 99285